=== PATIENT | female | born 1980 ===

== ENCOUNTER 2016-07-24 11:11 | Inpatient (IN) | payer OTHER ==
[2016-07-24 12:07] VITALS: BMI 28.3
--- NOTE | 2016-07-24 14:22 | HP ---
COWS - Scale Resting Pulse: 2= CO 101-120 Sweatin=Flushed/Facial Moisture Restless Observation: 3= Extraneous Movement Pupil Size: 2= Moderately Dilated Bone or Joint Aches: 2= Severe Diffuse Aches Runny Nose/ Eye Tearin= Runny Nose/Eyes GI Upset > 30mins: 3= Vomiting/Diarrhea Tremor Observation: 2= Slight Tremor Visible Yawning Observation: 2= >3x During Session Anxiety or Irritability: 2=Irritable/Anxious Goose Flesh Skin: 0=Smooth Skin COWS Score: 22 CIWA Score - CIWA Score Nausea/Vomitin Muscle Tremors: 3 Anxiety: 3 Agitation: 3 Paroxysmal Sweats: 2 Orientation: 0-Oriented Tacttile Disturbances: 2-Mild Itch/Numbness/Burn Auditory Disturbances: 2-Mild Harshness/Frighten Visual Disturbances: 2-Mild Sensitivity Headache: 2-Mild CIWA-Ar Total Score: 22 Admission ROS BHS - HPI Chief Complaint: I NEED HELP TO STOP USING HEROIN AND ALCOHOL Allergies/Adverse Reactions: Allergies Allergy/AdvReac Type Severity Reaction Status Date / Time No Known Allergies Allergy Verified 07/24/16 12:38 History of Present Illness: THIS 36 YEARS OLD FEMALE WITH HEROIN AND ALCOHOL DEPENDENCE,WITHDRAWAL SYMPTOM, LAST DETOX IN 07/03 IN [place] BIPOLAR DISORDER NICOTINE DEPENDENCE LONGEST PERIOD OF SOBRIETY HYPERTENSION Exam Limitations: No Limitations - Ebola screening Have you traveled outside of the country in the last 21 days: No Have you had contact with anyone from an Ebola affected area: No Have you been sick,other than usual withdrawal symptoms: No - Review of Systems Constitutional: Chills, Diaphoresis, Loss of Appetite, Malaise, Night Sweats, Changes in sleep, Weakness EENT: reports: Tearing, Nose Congestion Respiratory: reports: No Symptoms reported Cardiac: reports: Palpitations GI: reports: Diarrhea, Poor Appetite, Vomiting, Abdominal cramping : reports: No Symptoms Reported Musculoskeletal: reports: Back Pain, Joint Pain, Muscle Pain, Neck Pain Integumentary: reports: Dryness Neuro: reports: Headache, Tremors Endocrine: reports: No Symptoms Reported Hematology: reports: No Symptoms Reported Psychiatric: reports: Judgement Intact, Mood/Affect Appropiate, Orientated x3 ( BIPOLAR DISORDER) Patient History - Patient Medical History Hx Asthma: No Hx Chronic Obstructive Pulmonary Disease (COPD): No Hx Cancer: No Hx Cardiac Disorders: No Hx Hypertension: Yes (on meds.) Hx Hypercholesterolemia: No Hx Pacemaker: No HX Cerebrovascular Accident: No Hx Seizures: No Hx Dementia: No Hx Diabetes: No Hx Gastrointestinal Disorders: No Hx Liver Disease: No Hx Genitourinary Disorders: No Hx Sexually Transmitted Disorders: No Hx Renal Disease (ESRD): No Hx Thyroid Disease: No Hx Human Immunodeficiency Virus (HIV): No (LAST 02/01 NEGATIVE) Hx Hepatitis C: Yes Hx Depression: Yes Hx Suicide Attempt: Yes (Tried to overdose in 2013) Hx Bipolar Disorder: Yes Hx Schizophrenia: No Other Medical History: NO SUICIDAL,NO HOMICIDAL - Patient Surgical History Past Surgical History: Yes Hx Section: Yes (x2) - PPD History Previous Implant?: Yes Documented Results: Negative w/o proof Implanted On Prior R Admission?: No PPD to be Administered?: Yes - Reproductive History Patient is a Female of Child Bearing Age (11 -55 yrs old): Yes Last Menstrual Period: 07/18/16 Patient : No - Smoking Cessation Smoking history: Current every day smoker Have you smoked in the past 12 months: Yes Aproximately how many cigarettes per day: 20 Hx Chewing Tobacco Use: No Initiated information on smoking cessation: Yes 'Breaking Loose' booklet given: 07/24/16 - Substance & Tx. History Hx Alcohol Use: Yes Hx Substance Use: Yes Substance Use Type: Alcohol, Cocaine, Heroin Hx Substance Use Treatment: Yes (07/03 IN [facility] 07/03) - Substances Abused Heroin Route: Injection Frequency: Daily Amount used: 30 bags Age of first use: 16 Date of Last Use: 07/24/16 Alcohol Route: Oral Frequency: Daily Amount used: 2 pints vodka Age of first use: 10 Date of Last Use: 07/24/16 Cocaine Route: Injection Frequency: Daily Amount used: 10 bags Age of first use: 16 Date of Last Use: 07/24/16 Family Disease History - Family Disease History Family Disease History: Other: Mother (ALCOHOL) Admission Physical Exam S - Vital Signs Vital Signs: Vital Signs - 24 hr 07/24/16 12:04 Temperature 98.1 F Pulse Rate 100 H Respiratory 20 Rate Blood Pressure 132/86 - Physical General Appearance: Yes: Moderate Distress, Alcohol on Breath, Intoxicated, Tremorous, Irritable, Sweating HEENTM: Yes: Hearing grossly Normal, Normocephalic, MOUNIKA, Pharynx Normal Respiratory: Yes: Lungs Clear, Normal Breath Sounds, No Respiratory Distress Neck: Yes: Within Normal Limits Breast: Yes: Breast Exam Deferred Cardiology: Yes: Tachycardia Abdominal: Yes: Within Normal Limits, Normal Bowel Sounds, Non Tender, Soft Genitourinary: Yes: Within Normal Limits Back: Yes: Muscle Spasm Musculoskeletal: Yes: Back pain, Joint Stiffness, Muscle Pain Extremities: Yes: Within Normal Limits, Normal Range of Motion, Tremors Neurological: Yes: home care manager rn II-XII NML intact, Fully Oriented, Alert, Motor Strength 5/5 Integumentary: Yes: Dry Lymphatic: Yes: Within Normal Limits - Diagnostic (1) Opioid dependence with withdrawal Current Visit: Yes Status: Acute (2) Alcohol dependence with uncomplicated withdrawal Current Visit: Yes Status: Acute (3) Hypertension Current Visit: Yes Status: Acute (4) Bipolar disorder Current Visit: Yes Status: Acute (5) Hepatitis C Current Visit: Yes Status: Acute Cleared for Admission [facility] - Detox or Rehab [facility] Level of Care: Medically Managed Detox Regimen/Protocol: Methadone/Librium [facility] Breath Alcohol Content Breath Alcohol Content: 0 Urine Pregancy Test - Result Urine Test Results: Negative- NO Line Present Urine Drug Screen - Results Drug Screen Negative: No Urine Drug Screen Results: OBED-Cocaine, OPI-Opiates, BZO-Benzodiazepines, MTD- Methadone, TCA-Tricyclic Antidepress
[2016-07-24] MEDS ORDERED: MAGNESIUM HYDROX 2400MG/30ML ORAL SUSPENSION 30 ML CUP PO PRN (14:38)
[2016-07-24] MEDS ORDERED: LOPERAMIDE HCL 2 MG CAPSULE PO PRN (14:38)
[2016-07-24] MEDS ORDERED: chlordiazePOXIDE HCL 25 MG CAPSULE PO PRN (14:38)
[2016-07-24] MEDS ORDERED: MENTHOL/PHENOL 1 EACH UD MM PRN (14:38)
[2016-07-24] MEDS ORDERED: guaiFENesin/D-METHORPHAN HB 10 ML UNIT-DOSE CUPS PO PRN (14:38)
[2016-07-24] MEDS ORDERED: MAGNESIUM CITRATE 300 ML BOTTLE PO PRN (14:38)
[2016-07-24] MEDS ORDERED: ACETAMINOPHEN 325 MG TABLET (FP) PO PRN (14:38)
[2016-07-24] MEDS ORDERED: MAG HYDROX/AL HYDROX/SIMETH 30 ML UNIT-DOSE CUP PO PRN (14:38)
[2016-07-24] MEDS ORDERED: P-EPHED 60MG/TRIPROLIDI 2.5MG TABLET PO PRN (14:38)
[2016-07-24] MEDS ORDERED: METHADONE HCL 10 MG TABLET (FOR DETOX USE ONLY) PO ONE ×2 (15:55→23:00)
[2016-07-24] MEDS: chlordiazePOXIDE HCL 25 MG CAPSULE PO SCH ×2 (17:19→22:46)
[2016-07-24 20:06] LABS: URINE APPEARANCE CLEAR; URINE BILIRUBIN NEGATIVE (NEGATIVE); URINE BLOOD NEGATIVE (NEGATIVE); URINE COLOR YELLOW; URINE GLUCOSE (UA) NEGATIVE (NEGATIVE); URINE KETONE NEGATIVE (NEGATIVE); URINE LEUK ESTERASE NEGATIVE (NEGATIVE); URINE NITRITE NEGATIVE (NEGATIVE); URINE PROTEIN NEGATIVE (NEGATIVE); URINE UROBILINOGEN NEGATIVE E.U./dl (0.2-1.0)
[2016-07-24] MEDS: diphenhydrAMINE HCL 50 MG CAPSULE PO PRN (22:46)
[2016-07-24] MEDS: cloNIDine HCL 0.1 MG TABLET PO SCH (22:46)
[2016-07-24] MEDS: THIAMINE HCL 100 MG TABLET (FP) PO SCH (22:46)
[2016-07-25] MEDS: chlordiazePOXIDE HCL 25 MG CAPSULE PO SCH ×4 (05:42→22:42)
[2016-07-25] MEDS: IBUPROFEN 400 MG TABLET (FP) PO PRN (05:44)
[2016-07-25] MEDS: cloNIDine HCL 0.1 MG TABLET PO SCH ×3 (07:46→22:41)
[2016-07-25] MEDS ORDERED: METHADONE HCL 10 MG TABLET (FOR DETOX USE ONLY) PO SCH (10:00)
[2016-07-25 10:18] LABS: MCH 27.4 pg (25.7-33.7); MCHC 31.8 g/dl (32.0-36.0); MEAN PLT VOLUME 7.9 fl (7.5-11.1); PLATELET COUNT 457 K/MM3 (134-434); RDW 20.1 % (11.6-15.6); WHITE BLOOD COUNT 6.8 K/mm3 (4.0-10.0)
[2016-07-25 10:23] LABS: ALBUMIN 3.9 g/dl (3.4-5.0); ANION GAP 11 (8-16); CALCIUM 9.1 mg/dL (8.5-10.1); CO2 28 mmol/L (21-32); GLUCOSE,RANDOM 90 mg/dL (74-106); SGOT/AST 125 U/L (15-37); SGPT/ALT 68 U/L (12-78)
[2016-07-25 10:25] LABS: ALK PHOS 96 U/L (45-117); BILIRUBIN,TOTAL 0.2 mg/dL (0.2-1.0); TOT PROT 8.5 g/dl (6.4-8.2)
[2016-07-25] MEDS: PRENATAL VITAMINS W/ FOLIC ACID TABLET (FP) PO SCH (11:31)
[2016-07-25 13:00] LABS: HIV 1 & 2 AB NEGATIVE; HIV 1 AGp24 NEGATIVE
[2016-07-25] MEDS: CYCLOBENZAPRINE HCL 10 MG TABLET (FP) PO PRN ×2 (13:17→22:42)
[2016-07-25 14:01] LABS: SICKLE CELL SCREEN NEGATIVE (NEGATIVE)
[2016-07-25] MEDS: NICOTINE 21 MG/24 HOURS TOPICAL PATCH TD SCH (15:23)
--- NOTE | 2016-07-25 16:11 | EKG ---
Test Reason : Blood Pressure : / mmHG Vent. Rate : 071 BPM Atrial Rate : 071 BPM P-R Int : 180 ms QRS Dur : 070 ms QT Int : 392 ms P-R-T Axes : 038 019 052 degrees QTc Int : 425 ms NORMAL SINUS RHYTHM NORMAL ECG WHEN COMPARED WITH ECG OF 24-JUL-2016 15:57, NO SIGNIFICANT CHANGE WAS FOUND Confirmed by MARGAUX CASH MD ([id number]) on 07/25/2016 4:11:47 PM Referred By: Confirmed By:MARGAUX CASH MD
--- NOTE | 2016-07-25 16:16 | EKG ---
Test Reason : Blood Pressure : / mmHG Vent. Rate : 084 BPM Atrial Rate : 084 BPM P-R Int : 172 ms QRS Dur : 074 ms QT Int : 390 ms P-R-T Axes : 056 014 059 degrees QTc Int : 460 ms NORMAL SINUS RHYTHM CANNOT RULE OUT ANTERIOR INFARCT , AGE UNDETERMINED ABNORMAL ECG NO PREVIOUS ECGS AVAILABLE Confirmed by MARGAUX CASH MD ([id number]) on 07/25/2016 4:16:23 PM Referred By: Confirmed By:MARGAUX CASH MD
--- NOTE | 2016-07-25 16:23 | CONSULT ---
[facility] Psychiatric Consult - Data Date of interview: 07/25/16 Admission source: [facility] Identifying data: First admission to [facility] for this 36 y/o AA female seeking detox treatment for heroin,alcohol and cocaine dependence.Patient is single,a mother of three,homeless,unemployed and supported on food stamps. Substance Abuse History: - Smoking Cessation. Smoking history: Current every day smoker. Have you smoked in the past 12 months: Yes. Aproximately how many cigarettes per day: 20. Hx Chewing Tobacco Use: No. Initiated information on smoking cessation: Yes. 'Breaking Loose' booklet given: 07/24/16. - Substance & Tx. History. Hx Alcohol Use: Yes. Hx Substance Use: Yes. Substance Use Type : Alcohol, Cocaine, Heroin. Hx Substance Use Treatment: Yes (07/03 IN [facility] 07/03). - Substances Abused. Heroin. Route: Injection. Frequency: Daily. Amount used: 30 bags. Age of first use: 16. Date of Last Use: . Alcohol. Route: Oral. Frequency: Daily. Amount used: 2 pints vodka. Age of first use: 10. Date of Last Use: 07/24/16. Cocaine. Route: Injection. Frequency: Daily. Amount used: 10 bags. Age of first use: 16. Date of Last Use: 07/24/16. Confirmed by patient. Medical History: Hepatitis C and hypertension. Psychiatric History: Past history of psychiatric hospitalizations (only in [place]).Patient is known to the [facility] and [facility].Diagnosed with Bipolar Disorder and prescribed seroquel 300 mg/hs + zoloft 50 mg/day.Ms Machado gets her OPD care at the [facility] mental health clinic.Last took her medications two days ago (self-report).Patient denies history of suicide attempts. Physical/Sexual Abuse/Trauma History: Patient denies. Additional Comment: Urine Drug Screen Results: OBED-Cocaine, OPI-Opiates, BZO- Benzodiazepines, MTD-Methadone, TCA-Tricyclic Antidepressant.Noted. Mental Status Exam - Mental Status Exam Alert and Oriented to: Time, Place, Person Cognitive Function: Good Patient Appearance: Well Groomed Mood: Nervous, Withdrawn, Anxious, Apprehensive Affect: Mood Congruent Patient Behavior: Fatigued, Cooperative Speech Pattern: Clear Voice Loudness: Normal Thought Process: Goal Oriented Thought Disorder: Not Present Hallucinations: Denies Suicidal Ideation: Denies Insight/Judgement: Poor Sleep: Poorly, Difficulty falling asleep Appetite: Good Muscle strength/Tone: Normal Gait/Station: Normal Psychiatric Findings - Problem List (Gray 1, 2,3) (1) Alcohol dependence with uncomplicated withdrawal Current Visit: Yes Status: Acute (2) Opioid dependence with withdrawal Current Visit: Yes Status: Acute (3) Cocaine dependence Current Visit: Yes Status: Acute (4) Nicotine dependence Current Visit: Yes Status: Acute (5) Substance induced mood disorder Current Visit: Yes Status: Acute (6) Bipolar disorder Current Visit: Yes Status: Chronic Comment: History. (7) Hepatitis C Current Visit: Yes Status: Chronic (8) Hypertension Current Visit: Yes Status: Chronic (9) Insomnia Current Visit: Yes Status: Acute - Initial Treatment Plan Initial Treatment Plan: Psychoeducation.Detoxification.Medications : seroquel 200 mg po hs + zoloft 50 mg po daily.Side effects/benefits discussed with patient.She agrees with this plan of care.Observation.
--- NOTE | 2016-07-25 17:25 | PN ---
S CIWA - CIWA Score Nausea/Vomitin-Mild Nausea/No Vomiting Muscle Tremors: 4-Moderate,w/Arms Extend Anxiety: 4-Mod. Anxious/Guarded Agitation: 4-Moderately Restless Paroxysmal Sweats: 3 Orientation: 1-Uncertain about Date Tacttile Disturbances: 2-Mild Itch/Numbness/Burn Auditory Disturbances: 0-None Visual Disturbances: 0-None Headache: 2-Mild CIWA-Ar Total Score: 21 BHS COWS - Scale Resting Pulse: 0= [place] 80 or Below Sweatin= Chills/Flushing Restless Observation: 1= Difficult to Sit Still Pupil Size: 0= Normal to Room Light Bone or Joint Aches: 2= Severe Diffuse Aches Runny Nose/ Eye Tearin= Nasal Congestion GI Upset > 30mins: 0= None Tremor Observation of Outstretched Hands: 2= Slight Tremor Visible Yawning Observation: 1= 1-2x During Session Anxiety or Irritability: 2=Irritable/Anxious Goose Flesh Skin: 3=Piloerection COWS Score: 13 S Progress Note (SOAP) Subjective: Body Aches, Muscle spasms, H/A, Sweating, Interrupted sleep, Hot / Cold sensations. Objective: PT. A & O X 2 (DISORIENTED ABOUT DAY / DATE). PT. OBSERVED AMBULATING ON UNIT. 07/25/16 17:23 Vital Signs Temperature 97.2 F L 07/25/16 14:39 Pulse Rate 59 L 07/25/16 14:39 Respiratory Rate 18 07/25/16 14:39 Blood Pressure 122/69 07/25/16 14:39 O2 Sat by Pulse Oximetry (%) Laboratory Last Values WBC 6.8 K/mm3 (4.0-10.0) 07/25/16 08:00 RBC 4.18 M/mm3 (3.60-5.2) 07/25/16 08:00 Hgb 11.4 GM/dL (10.7-15.3) 07/25/16 08:00 Hct 36.0 % (32.4-45.2) 07/25/16 08:00 MCV 86.0 fl (80-96) 07/25/16 08:00 MCHC 31.8 g/dl (32.0-36.0) L 07/25/16 08:00 RDW 20.1 % (11.6-15.6) H 07/25/16 08:00 Plt Count 457 K/MM3 (134-434) H 07/25/16 08:00 MPV 7.9 fl (7.5-11.1) 07/25/16 08:00 Sickle Cell Screen Negative (NEGATIVE) 07/25/16 08:00 Sodium 138 mmol/L (136-145) 07/25/16 08:00 Potassium 4.5 mmol/L (3.5-5.1) 07/25/16 08:00 Chloride 99 mmol/L (98-107) 07/25/16 08:00 Carbon Dioxide 28 mmol/L (21-32) 07/25/16 08:00 Anion Gap 11 (8-16) 07/25/16 08:00 BUN 6 mg/dL (7-18) L 07/25/16 08:00 Creatinine 1.0 mg/dL (0.55-1.02) 07/25/16 08:00 Creat Clearance w eGFR > 60 (>60) 07/25/16 08:00 Random Glucose 90 mg/dL (74-106) 07/25/16 08:00 Calcium 9.1 mg/dL (8.5-10.1) 07/25/16 08:00 Total Bilirubin 0.2 mg/dL (0.2-1.0) 07/25/16 08:00 AST 125 U/L (15-37) H 07/25/16 08:00 ALT 68 U/L (12-78) 07/25/16 08:00 Alkaline Phosphatase 96 U/L (45-117) 07/25/16 08:00 Total Protein 8.5 g/dl (6.4-8.2) H 07/25/16 08:00 Albumin 3.9 g/dl (3.4-5.0) 07/25/16 08:00 Urine Color Yellow 07/24/16 15:31 Urine Appearance Clear 07/24/16 15:31 Urine pH 5.0 (5.0-8.0) 07/24/16 15:31 Ur Specific [place] 1.020 (1.001-1.035) 07/24/16 15:31 Urine Protein Negative (NEGATIVE) 07/24/16 15:31 Urine Glucose (UA) Negative (NEGATIVE) 07/24/16 15:31 Urine Ketones Negative (NEGATIVE) 07/24/16 15:31 Urine Blood Negative (NEGATIVE) 07/24/16 15:31 Urine Nitrite Negative (NEGATIVE) 07/24/16 15:31 Urine Bilirubin Negative (NEGATIVE) 07/24/16 15:31 Urine Urobilinogen Negative E.U./dl (0.2-1.0) 07/24/16 15:31 Ur Leukocyte Esterase Negative (NEGATIVE) 07/24/16 15:31 RPR Titer Nonreactive (NONREACTIVE) 07/25/16 08:00 HIV 1&2 Antibody Screen Negative 07/24/16 13:00 HIV P24 Antigen Negative 07/24/16 13:00 LABS NOTED. Assessment: 07/25/16 17:24 WITHDRAWAL SYMPTOMS. Plan: CONTINUE DETOX. PRN FLEXERIL FOR MUSCLE SPASMS. ADVISED PATIENT TO FOLLOW-UP WITH HEATER OPERATOR HELPER / REHAB MEDICAL PROVIDER AFTER DISCHARGE FROM DETOX FOR GENERAL MEDICAL ASSESSMENT AND FOR ABNORMAL ADMISSION LAB VALUES.
[2016-07-25] MEDS: SERTRALINE HCL 50 MG TABLET (FP) PO SCH (17:29)
[2016-07-25] MEDS: THIAMINE HCL 100 MG TABLET (FP) PO SCH (22:42)
[2016-07-25] MEDS: QUEtiapine FUMARATE 200 MG TABLET PO SCH (22:42)
[2016-07-26] MEDS: chlordiazePOXIDE HCL 25 MG CAPSULE PO SCH ×2 (05:49→10:52)
[2016-07-26] MEDS: CYCLOBENZAPRINE HCL 10 MG TABLET (FP) PO PRN ×4 (05:50→22:38)
[2016-07-26] MEDS: cloNIDine HCL 0.1 MG TABLET PO SCH ×3 (05:52→22:38)
[2016-07-26] MEDS: SERTRALINE HCL 50 MG TABLET (FP) PO SCH ×2 (10:52→10:56)
[2016-07-26] MEDS: PRENATAL VITAMINS W/ FOLIC ACID TABLET (FP) PO SCH (10:52)
[2016-07-26] MEDS: METHADONE HCL 5 MG TABLET (FOR DETOX USE ONLY) PO SCH (10:52)
[2016-07-26] MEDS: NICOTINE 21 MG/24 HOURS TOPICAL PATCH TD SCH (10:54)
--- NOTE | 2016-07-26 16:35 | PN ---
S CIWA - CIWA Score Nausea/Vomitin-Mild Nausea/No Vomiting Muscle Tremors: 4-Moderate,w/Arms Extend Anxiety: 4-Mod. Anxious/Guarded Agitation: 4-Moderately Restless Paroxysmal Sweats: No Perspiration Orientation: 0-Oriented Tacttile Disturbances: 1-Very Mild Itch/Numbness Auditory Disturbances: 0-None Visual Disturbances: 0-None Headache: 2-Mild CIWA-Ar Total Score: 16 BHS COWS - Scale Resting Pulse: 0= [place] 80 or Below Sweatin= Chills/Flushing Restless Observation: 3= Extraneous Movement Pupil Size: 0= Normal to Room Light Bone or Joint Aches: 2= Severe Diffuse Aches Runny Nose/ Eye Tearin= Runny Nose/Eyes GI Upset > 30mins: 1= Stomach Cramp Tremor Observation of Outstretched Hands: 2= Slight Tremor Visible Yawning Observation: 1= 1-2x During Session Anxiety or Irritability: 2=Irritable/Anxious Goose Flesh Skin: 0=Smooth Skin COWS Score: 14 S Progress Note (SOAP) Subjective: Tremor, nausea, sweating, interrupted sleep, anxious Objective: 07/26/16 16:34 Last Vital Signs Temp Pulse Resp BP Pulse Ox 97.9 F 70 16 118/79 07/26/16 14:24 07/26/16 14:24 07/26/16 14:24 07/26/16 14:24 Laboratory Tests 07/24/16 07/24/16 07/25/16 13:00 15:31 08:00 WBC 6.8 RBC 4.18 Hgb 11.4 Hct 36.0 MCV 86.0 MCHC 31.8 L RDW 20.1 H Plt Count 457 H MPV 7.9 Sickle Cell Screen Negative Sodium Potassium Chloride Carbon Dioxide Anion Gap BUN Creatinine Creat Clearance w eGFR Random Glucose Calcium Total Bilirubin AST ALT Alkaline Phosphatase Total Protein Albumin Urine Color Yellow Urine Appearance Clear Urine pH 5.0 Ur Specific [place] 1.020 Urine Protein Negative Urine Glucose (UA) Negative Urine Ketones Negative Urine Blood Negative Urine Nitrite Negative Urine Bilirubin Negative Urine Urobilinogen Negative Ur Leukocyte Esterase Negative RPR Titer HIV 1&2 Antibody Screen Negative HIV P24 Antigen Negative 07/25/16 07/25/16 08:00 08:00 WBC RBC Hgb Hct MCV MCHC RDW Plt Count MPV Sickle Cell Screen Sodium 138 Potassium 4.5 Chloride 99 Carbon Dioxide 28 Anion Gap 11 BUN 6 L Creatinine 1.0 Creat Clearance w eGFR > 60 Random Glucose 90 Calcium 9.1 Total Bilirubin 0.2 AST 125 H ALT 68 Alkaline Phosphatase 96 Total Protein 8.5 H Albumin 3.9 Urine Color Urine Appearance Urine pH Ur Specific [place] Urine Protein Urine Glucose (UA) Urine Ketones Urine Blood Urine Nitrite Urine Bilirubin Urine Urobilinogen Ur Leukocyte Esterase RPR Titer Nonreactive HIV 1&2 Antibody Screen HIV P24 Antigen Labs noted Assessment: 07/26/16 16:35 Withdrawal symptoms Plan: Continue detox
[2016-07-26] MEDS: IBUPROFEN 400 MG TABLET (FP) PO PRN ×2 (17:02→22:39)
[2016-07-26] MEDS: chlordiazePOXIDE 5 MG CAPSULE PO SCH ×2 (17:22→22:38)
[2016-07-26] MEDS: THIAMINE HCL 100 MG TABLET (FP) PO SCH (22:38)
[2016-07-26] MEDS: QUEtiapine FUMARATE 200 MG TABLET PO SCH (22:39)
[2016-07-27] MEDS: chlordiazePOXIDE 5 MG CAPSULE PO SCH ×2 (05:37→11:01)
[2016-07-27] MEDS: cloNIDine HCL 0.1 MG TABLET PO SCH ×3 (05:37→22:38)
[2016-07-27] MEDS: CYCLOBENZAPRINE HCL 10 MG TABLET (FP) PO PRN ×2 (05:39→22:38)
[2016-07-27] MEDS: SERTRALINE HCL 50 MG TABLET (FP) PO SCH ×2 (11:01→11:03)
[2016-07-27] MEDS: METHADONE HCL 5 MG TABLET (FOR DETOX USE ONLY) PO SCH (11:01)
[2016-07-27] MEDS: PRENATAL VITAMINS W/ FOLIC ACID TABLET (FP) PO SCH (11:01)
[2016-07-27] MEDS: NICOTINE 21 MG/24 HOURS TOPICAL PATCH TD SCH (11:04)
--- NOTE | 2016-07-27 12:24 | PN ---
BHS Progress Note (SOAP) Subjective: interrupted sleep, sweats, shakes,lbp, constipation Objective: 07/27/16 12:21 Vital Signs Temperature 97.3 F L 07/27/16 09:56 Pulse Rate 78 07/27/16 09:56 Respiratory Rate 16 07/27/16 09:56 Blood Pressure 107/52 07/27/16 09:56 O2 Sat by Pulse Oximetry (%) Laboratory Tests 07/24/16 07/24/16 07/25/16 13:00 15:31 08:00 WBC 6.8 RBC 4.18 Hgb 11.4 Hct 36.0 MCV 86.0 MCHC 31.8 L RDW 20.1 H Plt Count 457 H MPV 7.9 Sickle Cell Screen Negative Sodium Potassium Chloride Carbon Dioxide Anion Gap BUN Creatinine Creat Clearance w eGFR Random Glucose Calcium Total Bilirubin AST ALT Alkaline Phosphatase Total Protein Albumin Urine Color Yellow Urine Appearance Clear Urine pH 5.0 Ur Specific [place] 1.020 Urine Protein Negative Urine Glucose (UA) Negative Urine Ketones Negative Urine Blood Negative Urine Nitrite Negative Urine Bilirubin Negative Urine Urobilinogen Negative Ur Leukocyte Esterase Negative RPR Titer HIV 1&2 Antibody Screen Negative HIV P24 Antigen Negative 07/25/16 07/25/16 08:00 08:00 WBC RBC Hgb Hct MCV MCHC RDW Plt Count MPV Sickle Cell Screen Sodium 138 Potassium 4.5 Chloride 99 Carbon Dioxide 28 Anion Gap 11 BUN 6 L Creatinine 1.0 Creat Clearance w eGFR > 60 Random Glucose 90 Calcium 9.1 Total Bilirubin 0.2 AST 125 H ALT 68 Alkaline Phosphatase 96 Total Protein 8.5 H Albumin 3.9 Urine Color Urine Appearance Urine pH Ur Specific [place] Urine Protein Urine Glucose (UA) Urine Ketones Urine Blood Urine Nitrite Urine Bilirubin Urine Urobilinogen Ur Leukocyte Esterase RPR Titer Nonreactive HIV 1&2 Antibody Screen HIV P24 Antigen pt aox3 in nad ambulating Assessment: 07/27/16 12:23 withdrawal sx's lbp Plan: cont. detox increase fluids
[2016-07-27] MEDS ORDERED: LIDOCAINE 5% TOPICAL PATCH TP ONE (14:00)
[2016-07-27] MEDS: chlordiazePOXIDE HCL 10 MG CAPSULE PO SCH ×2 (17:21→22:38)
[2016-07-27] MEDS: IBUPROFEN 400 MG TABLET (FP) PO PRN (18:58)
[2016-07-27] MEDS: QUEtiapine FUMARATE 200 MG TABLET PO SCH (22:39)
[2016-07-27] MEDS: THIAMINE HCL 100 MG TABLET (FP) PO SCH (22:39)
[2016-07-27] MEDS: diphenhydrAMINE HCL 50 MG CAPSULE PO PRN (22:39)
[2016-07-28] MEDS: chlordiazePOXIDE HCL 10 MG CAPSULE PO SCH ×2 (06:38→11:00)
[2016-07-28] MEDS: cloNIDine HCL 0.1 MG TABLET PO SCH ×3 (07:00→22:28)
[2016-07-28] MEDS ORDERED: METHADONE HCL 10 MG TABLET (FOR DETOX USE ONLY) PO SCH (10:00)
[2016-07-28] MEDS: PRENATAL VITAMINS W/ FOLIC ACID TABLET (FP) PO SCH (10:59)
[2016-07-28] MEDS: NICOTINE 21 MG/24 HOURS TOPICAL PATCH TD SCH (11:00)
[2016-07-28] MEDS: SERTRALINE HCL 50 MG TABLET (FP) PO SCH (11:00)
[2016-07-28] MEDS: LIDOCAINE 5% TOPICAL PATCH TP SCH (11:01)
--- NOTE | 2016-07-28 11:08 | PN ---
BHS Progress Note (SOAP) Subjective: interrupted sleep, sweats , lbp Objective: 07/28/16 11:07 Vital Signs Temperature 96.1 F L 07/28/16 10:05 Pulse Rate 126 H 07/28/16 10:05 Respiratory Rate 20 07/28/16 10:05 Blood Pressure 114/72 07/28/16 10:05 O2 Sat by Pulse Oximetry (%) Laboratory Tests 07/24/16 07/24/16 07/25/16 13:00 15:31 08:00 WBC 6.8 RBC 4.18 Hgb 11.4 Hct 36.0 MCV 86.0 MCHC 31.8 L RDW 20.1 H Plt Count 457 H MPV 7.9 Sickle Cell Screen Negative Sodium Potassium Chloride Carbon Dioxide Anion Gap BUN Creatinine Creat Clearance w eGFR Random Glucose Calcium Total Bilirubin AST ALT Alkaline Phosphatase Total Protein Albumin Urine Color Yellow Urine Appearance Clear Urine pH 5.0 Ur Specific [place] 1.020 Urine Protein Negative Urine Glucose (UA) Negative Urine Ketones Negative Urine Blood Negative Urine Nitrite Negative Urine Bilirubin Negative Urine Urobilinogen Negative Ur Leukocyte Esterase Negative RPR Titer HIV 1&2 Antibody Screen Negative HIV P24 Antigen Negative 07/25/16 07/25/16 08:00 08:00 WBC RBC Hgb Hct MCV MCHC RDW Plt Count MPV Sickle Cell Screen Sodium 138 Potassium 4.5 Chloride 99 Carbon Dioxide 28 Anion Gap 11 BUN 6 L Creatinine 1.0 Creat Clearance w eGFR > 60 Random Glucose 90 Calcium 9.1 Total Bilirubin 0.2 AST 125 H ALT 68 Alkaline Phosphatase 96 Total Protein 8.5 H Albumin 3.9 Urine Color Urine Appearance Urine pH Ur Specific [place] Urine Protein Urine Glucose (UA) Urine Ketones Urine Blood Urine Nitrite Urine Bilirubin Urine Urobilinogen Ur Leukocyte Esterase RPR Titer Nonreactive HIV 1&2 Antibody Screen HIV P24 Antigen pt aox3 in nad sitting up in bed Assessment: 07/28/16 11:08 withdrawal sx's lbp 07/28/16 11:09 Plan: contr detox cont present meds incrwease fluids d/c samuel
--- NOTE | 2016-07-28 17:31 | PN ---
Psychiatric Progress Note Vital Signs: Vital Signs Period Temp Pulse Resp BP Sys/Hernandez Pulse Ox Last 24 Hr 96.1 F-98.1 F 68-126 18-20 103-129/60-79 Date of Session: 07/28/16 Chief Complaint:: " I think that some people do not like me here." HPI: Day 5 of hospitalization for detox treatment for alcohol,cocaine and heroin dependence.Patient is reported by the nursing staff to be hearing " voices." ROS: Unremarkable. Current Medications: Active Medications Generic Name Dose Route Start Last Admin Trade Name Freq PRN Reason Stop Dose Admin Acetaminophen 650 mg 07/24/16 14:38 Tylenol - PO Q4H PRN FEVER OR PAIN Al Hydroxide/Mg Hydroxide 30 ml 07/24/16 14:38 Mylanta Oral Suspension - PO Q6H PRN DYSPEPSIA Clonidine 0.1 mg 07/24/16 22:00 07/28/16 14:09 Catapres - PO Not Given TID JOAQUIN Cyclobenzaprine HCl 10 mg 07/25/16 08:24 07/27/16 22:38 Flexeril - PO 10 mg TID PRN Administration MUSCLE SPASMS Diphenhydramine HCl 50 mg 07/24/16 14:38 07/27/16 22:39 Benadryl - PO 50 mg HSMR1 PRN Administration INSOMNIA Eucalyptus/Menthol/Phenol/Sorbitol 1 each 07/24/16 14:38 Cepastat Lozenge - MM Q4H PRN SORE THROAT Guaifenesin 10 ml 07/24/16 14:38 Robitussin Dm - PO Q6H PRN COUGH Ibuprofen 400 mg 07/24/16 14:38 07/27/16 18:58 Motrin - PO 400 mg Q6H PRN Administration SEVERE PAIN Lidocaine 1 patch 07/28/16 10:00 07/28/16 11:01 Lidoderm Patch - TP 1 patch DAILY JOAQUIN Administration Loperamide HCl 4 mg 07/24/16 14:38 Imodium - PO Q6H PRN DIARRHEA Magnesium Citrate 300 ml 07/24/16 14:38 Citroma - PO Q48H PRN CONSTIPATION Magnesium Hydroxide 30 ml 07/24/16 14:38 Milk Of Magnesia - PO DAILY PRN CONSTIPATION Methadone HCl 5 mg 07/29/16 06:00 Dolophine - PO 07/29/16 06:01 DAILY@0600 JOAQUIN Nicotine 21 mg 07/25/16 13:30 07/28/16 11:00 Nicoderm Patch - TD 21 mg DAILY JOAQUIN Administration Multivit/Folic Acid/Iron 1 tab 07/25/16 10:00 07/28/16 10:59 Vitamins (Sjr) - PO 1 tab DAILY JOAQUIN Administration Pseudoephedrine/Triprolidine 1 combo 07/24/16 14:38 Actifed - PO TID PRN NASAL CONGESTION Quetiapine Fumarate 200 mg 07/25/16 22:00 07/27/16 22:39 Seroquel - PO 200 mg HS JOAQUIN Administration Sertraline HCl 50 mg 07/25/16 16:45 07/28/16 11:00 Zoloft - PO 50 mg DAILY JOAQUIN Administration Thiamine HCl 100 mg 07/24/16 22:00 07/27/16 22:39 Vitamin B1 - PO 100 mg HS JOAQUIN Administration Medication(s) Change(s): Continue seroquel 200 mg po hs. Current Side Effect: No Lab tests ordered: No Lab tests reviewed: Yes Provider note:: Progress notes reviewed.Patient re-evaluated at nurse's request.She appears sedated and she indicates that librium makes her feel " drowsy and sleepy." Patient vehemently denies hearing voices.Ms Machado is visible on the unit.Ambulates slowly.She is somewhat slurred and drifts in the conversation.Definitely sedated.Needs observation and adjustment of the librium coverage. Total face to face time:: 35 Mental Status Exam - Mental Status Exam Alert and Oriented to: Time, Place, Person Cognitive Function: Grossly Intact Patient Appearance: Well Groomed Mood: Withdrawn Affect: Blunted Patient Behavior: Sedated, Fatigued Speech Pattern: Delayed, Slurred Voice Loudness: Moderately Soft/Quiet Thought Process: Disorganized (moderately) Thought Disorder: Bizarre Hallucinations: Denies Suicidal Ideation: Denies Homicidal Ideation: Denies Insight/Judgement: Poor Sleep: Fair Appetite: Good Muscle strength/Tone: Normal Gait/Station: Normal Psychiatric Treatment Plan - Problem List (1) Alcohol dependence with uncomplicated withdrawal Current Visit: Yes (2) Opioid dependence with withdrawal Current Visit: Yes (3) Cocaine dependence Current Visit: Yes (4) Nicotine dependence Current Visit: Yes (5) Substance induced mood disorder Current Visit: Yes (6) Bipolar disorder Current Visit: Yes Comment: History. (7) Hepatitis C Current Visit: Yes (8) Hypertension Current Visit: Yes (9) Insomnia Current Visit: Yes
[2016-07-28] MEDS: QUEtiapine FUMARATE 200 MG TABLET PO SCH (22:28)
[2016-07-28] MEDS: CYCLOBENZAPRINE HCL 10 MG TABLET (FP) PO PRN (22:28)
[2016-07-28] MEDS: THIAMINE HCL 100 MG TABLET (FP) PO SCH (22:28)
[2016-07-29] MEDS ORDERED: METHADONE HCL 5 MG TABLET (FOR DETOX USE ONLY) PO SCH (06:00)
[2016-07-29] MEDS: cloNIDine HCL 0.1 MG TABLET PO SCH (06:10)
[2016-07-29 06:46] VITALS: BP 105/63
--- NOTE | 2016-07-29 09:05 | DS ---
[facility] Detox Discharge Summary Admission Date: 07/24/16 Discharge Date: 07/29/16 - History Present History: Alcohol Dependence, Cocaine Dependence - Physical Exam Results Vital Signs: Vital Signs Temperature 97.3 F L 07/29/16 06:45 Pulse Rate 63 07/29/16 06:45 Respiratory Rate 16 07/29/16 06:45 Blood Pressure 105/63 07/29/16 06:45 O2 Sat by Pulse Oximetry (%) - Treatment Hospital Course: Detox Protocol Followed, Detoxed Safely, Responded well, Discharged Condition Good - Medication Discharge Medications: Ambulatory Orders Clonidine HCl [Catapres -] 0.1 mg PO TID 07/24/16 Quetiapine Fumarate [Seroquel -] 300 mg PO HS 07/24/16 Sertraline HCl [Zoloft -] 50 mg PO DAILY 07/24/16 Quetiapine Fumarate [Seroquel -] 200 mg PO HS #30 tab 07/25/16 Sertraline HCl [Zoloft -] 50 mg PO DAILY #30 tablet 07/25/16 - Diagnosis (1) Alcohol dependence with uncomplicated withdrawal Current Visit: Yes Status: Chronic (2) Cocaine dependence Current Visit: Yes Status: Chronic (3) Insomnia Current Visit: Yes Status: Chronic Qualifiers: Insomnia type: unspecified Qualified Code(s): G47.00 - Insomnia, unspecified (4) Nicotine dependence Current Visit: Yes Status: Chronic Qualifiers: Nicotine product type: cigarettes Substance use status: uncomplicated Qualified Code(s): F17.210 - Nicotine dependence, cigarettes, uncomplicated (5) Opioid dependence with withdrawal Current Visit: Yes Status: Chronic (6) Bipolar disorder Current Visit: Yes Status: Chronic Qualifiers: Current episode severity: unspecified (7) Hepatitis C Current Visit: Yes Status: Chronic Qualifiers: Hepatic coma status: without hepatic coma (8) Hypertension Current Visit: Yes Status: Chronic - AMA Did Patient Leave Against Medical Advice: No
[2016-07-29] MEDS: LIDOCAINE 5% TOPICAL PATCH TP SCH (09:49)
[2016-07-29] MEDS: PRENATAL VITAMINS W/ FOLIC ACID TABLET (FP) PO SCH (09:49)
[2016-07-29] MEDS: NICOTINE 21 MG/24 HOURS TOPICAL PATCH TD SCH (09:49)
[2016-07-29] MEDS: SERTRALINE HCL 50 MG TABLET (FP) PO SCH (09:49)
[2016-07-29 11:05] VITALS: PULSE 75; TEMP 96.5
== END 2016-07-29 10:56 | disposition home or self-care (01) | DRG 773 ==
LOC: YASAS 11:11 → Y6N 14:54
PROVIDERS: ADMIT Internal Medicine; ATTEND Internal Medicine
PROC: HZ2ZZZZ Detoxification Services for Substance Abuse Treatment (ICD-10-PCS; principal; 2016-07-29)
DX: F11.23 Opioid dependence with withdrawal (principal); F10.230 Alcohol dependence with withdrawal, uncomplicated; F14.20 Cocaine dependence, uncomplicated; F17.210 Nicotine dependence, cigarettes, uncomplicated; F19.24 Other psychoactive substance dependence with psychoactive substance-induced mood disorder; F31.9 Bipolar disorder, unspecified; G47.00 Insomnia, unspecified; B18.2 Chronic viral hepatitis C; I10 Essential (primary) hypertension; Z59.0 Homelessness
CPT/HCPCS: 36415; 80053; 81003; 85027; 85660; 86593; 87389; 93005; 93010

== ENCOUNTER 2016-07-29 10:00 | Inpatient (IN) | payer OTHER ==
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
[2016-07-29] MEDS ORDERED: guaiFENesin/D-METHORPHAN HB 10 ML UNIT-DOSE CUPS PO PRN (14:23)
[2016-07-29] MEDS ORDERED: LOPERAMIDE HCL 2 MG CAPSULE PO PRN (14:23)
[2016-07-29] MEDS ORDERED: P-EPHED 60MG/TRIPROLIDI 2.5MG TABLET PO PRN (14:23)
[2016-07-29] MEDS ORDERED: MAG HYDROX/AL HYDROX/SIMETH 30 ML UNIT-DOSE CUP PO PRN (14:23)
[2016-07-29] MEDS ORDERED: MAGNESIUM CITRATE 300 ML BOTTLE PO PRN (14:23)
[2016-07-29] MEDS ORDERED: ACETAMINOPHEN 325 MG TABLET (FP) PO PRN (14:23)
[2016-07-29] MEDS ORDERED: MENTHOL/PHENOL 1 EACH UD MM PRN (14:23)
[2016-07-29] MEDS ORDERED: CYCLOBENZAPRINE HCL 10 MG TABLET (FP) PO PRN (14:30)
--- NOTE | 2016-07-29 14:31 | HP ---
[facility] Rehab Assess/Revision - Admission History Admitted to Rehab from: [facility] [place] Date of Admission to Rehab: 07/29/16 - Vital signs Vital Signs: Vital Signs Period Temp Pulse Resp BP Sys/Hernandez Pulse Ox Last 24 Hr 98.0 F 75 18 99/64 - Findings Detox History & Physical reviewed: Yes Concur with findings: Yes
[2016-07-29] MEDS: IBUPROFEN 400 MG TABLET (FP) PO PRN (17:51)
[2016-07-29] MEDS: THIAMINE HCL 100 MG TABLET (FP) PO SCH (21:49)
[2016-07-29] MEDS: cloNIDine HCL 0.1 MG TABLET PO SCH (21:49)
[2016-07-29] MEDS: QUEtiapine FUMARATE 300 MG TABLET PO SCH (21:49)
[2016-07-29] MEDS ORDERED: QUEtiapine FUMARATE 200 MG TABLET PO SCH (22:00)
[2016-07-29] MEDS: diphenhydrAMINE HCL 50 MG CAPSULE PO PRN (23:08)
[2016-07-30] MEDS ORDERED: SERTRALINE HCL 50 MG TABLET (FP) PO SCH (10:00)
[2016-07-30] MEDS ORDERED: NICOTINE 14 MG/24 HOURS TOPICAL PATCH TD SCH (10:00)
[2016-07-30] MEDS: SERTRALINE HCL 50 MG TABLET (FP) PO SCH (10:02)
[2016-07-30] MEDS: NICOTINE 21 MG/24 HOURS TOPICAL PATCH TD SCH (10:02)
[2016-07-30] MEDS: cloNIDine HCL 0.1 MG TABLET PO SCH ×2 (10:03→21:04)
[2016-07-30] MEDS: PRENATAL VITAMINS W/ FOLIC ACID TABLET (FP) PO SCH (10:03)
--- NOTE | 2016-07-30 11:46 | PN ---
Psychiatric Progress Note Vital Signs: Vital Signs Period Temp Pulse Resp BP Sys/Hernandez Pulse Ox Last 24 Hr 97.3 F 90-93 18-18 109-117/70-73 Date of Session: 07/30/16 Chief Complaint:: "am depressed" HPI: Patient is addressing alcohol, cocaine, opioid, nicotine dependence comorbid Bipolar I disorder. ROS: Significant for HTN, Hep C and S/P x2 Current Medications: Active Medications Generic Name Dose Route Start Last Admin Trade Name Freq PRN Reason Stop Dose Admin Acetaminophen 650 mg 07/29/16 14:23 Tylenol - PO Q4H PRN FEVER OR PAIN Al Hydroxide/Mg Hydroxide 30 ml 07/29/16 14:23 Mylanta Oral Suspension - PO Q6H PRN DYSPEPSIA Bupropion HCl 100 mg 07/31/16 10:00 Wellbutrin - PO DAILY JOAQUIN Clonidine 0.1 mg 07/29/16 22:00 07/30/16 10:03 Catapres - PO 0.1 mg BID JOAQUIN Administration Cyclobenzaprine HCl 10 mg 07/29/16 14:30 07/29/16 17:51 Flexeril - PO 10 mg TID PRN Administration MUSCLE SPASMS Diphenhydramine HCl 50 mg 07/29/16 14:23 07/29/16 23:08 Benadryl - PO 50 mg HSMR1 PRN Administration FOR ITCHING Eucalyptus/Menthol/Phenol/Sorbitol 1 each 07/29/16 14:23 Cepastat Lozenge - MM Q4H PRN SORE THROAT Guaifenesin 10 ml 07/29/16 14:23 Robitussin Dm - PO Q6H PRN COUGH Hydroxyzine Pamoate 50 mg 07/30/16 11:42 Vistaril - PO Q4H PRN ANXIETY Ibuprofen 400 mg 07/29/16 14:23 07/29/16 17:51 Motrin - PO 400 mg Q6H PRN Administration PAIN Loperamide HCl 4 mg 07/29/16 14:23 Imodium - PO Q6H PRN DIARRHEA Magnesium Citrate 300 ml 07/29/16 14:23 Citroma - PO 07/31/16 14:24 Q48H PRN CONSTIPATION Magnesium Hydroxide 30 ml 07/29/16 14:23 Milk Of Magnesia - PO DAILY PRN CONSTIPATION Nicotine 21 mg 07/30/16 10:00 04/13/17 10:02 Nicoderm Patch - TD 21 mg DAILY JOAQUIN Administration Nicotine Polacrilex 2 mg 07/29/16 14:23 Nicorette Gum - BUC Q2H PRN NICOTINE REPLACEMENT RX Multivit/Folic Acid/Iron 1 tab 07/30/16 10:00 07/30/16 10:03 Vitamins (Sjr) - PO 1 tab DAILY JOAQUIN Administration Pseudoephedrine/Triprolidine 1 combo 07/29/16 14:23 Actifed - PO TID PRN NASAL CONGESTION Quetiapine Fumarate 300 mg 07/29/16 22:00 07/29/16 21:49 Seroquel - PO 300 mg HS JOAQUIN Administration Sertraline HCl 100 mg 07/30/16 10:00 07/30/16 10:02 Zoloft - PO 100 mg DAILY JOAQUIN Administration Thiamine HCl 100 mg 07/29/16 22:00 07/29/16 21:49 Vitamin B1 - PO 100 mg HS JOAQUIN Administration Medication(s) Change(s): add Wellbutrin 100 mg po daily, add Vistaril 50 mg po q 4h prn. Current Side Effect: No Lab tests ordered: No Lab tests reviewed: Yes Provider note:: Reviewed the chart, met with the patient, who is c/o depressed mood, anxiety, having crying spells, low energy level, reviewed her current medications , side-effects and benefits each of medications discussed, psychoeducation and supportive therapy provided, recommended Wellbutrin 100 mg po am and Vistaril 50 mg po 4 hrs, continue to monitor progress. Total face to face time:: 30 Mental Status Exam - Mental Status Exam Alert and Oriented to: Time, Place, Person Cognitive Function: Good Patient Appearance: Well Groomed Mood: Depressed, Sad, Anxious Affect: Appropriate, Mood Congruent Patient Behavior: Appropriate, Cooperative Speech Pattern: Clear, Appropriate Voice Loudness: Normal Thought Process: Intact, Goal Oriented Thought Disorder: Not Present Hallucinations: Denies Suicidal Ideation: Denies Homicidal Ideation: Denies Insight/Judgement: Fair Sleep: Fair Appetite: Fair Muscle strength/Tone: Normal Gait/Station: Normal Psychiatric Treatment Plan - Problem List (1) Alcohol dependence with uncomplicated withdrawal Current Visit: No (2) Bipolar disorder Current Visit: No Qualifiers: Current episode severity: unspecified Comment: History. (3) Cocaine dependence Current Visit: No (4) Nicotine dependence Current Visit: No Qualifiers: Nicotine product type: cigarettes Substance use status: uncomplicated Qualified Code(s): F17.210 - Nicotine dependence, cigarettes, uncomplicated
[2016-07-30] MEDS: hydrOXYzine PAMOATE 50 MG CAPSULE (FP) PO PRN (12:46)
[2016-07-30] MEDS: LIDOCAINE 5% TOPICAL PATCH TP SCH (14:48)
[2016-07-30] MEDS: QUEtiapine FUMARATE 300 MG TABLET PO SCH (21:04)
[2016-07-30] MEDS: THIAMINE HCL 100 MG TABLET (FP) PO SCH (21:04)
[2016-07-30] MEDS: diphenhydrAMINE HCL 50 MG CAPSULE PO PRN (21:05)
[2016-07-31] MEDS: IBUPROFEN 400 MG TABLET (FP) PO PRN (06:34)
[2016-07-31] MEDS: hydrOXYzine PAMOATE 50 MG CAPSULE (FP) PO PRN ×3 (06:34→21:11)
[2016-07-31] MEDS: LIDOCAINE 5% TOPICAL PATCH TP SCH (09:53)
[2016-07-31] MEDS: NICOTINE 21 MG/24 HOURS TOPICAL PATCH TD SCH (09:53)
[2016-07-31] MEDS: cloNIDine HCL 0.1 MG TABLET PO SCH ×2 (09:54→21:10)
[2016-07-31] MEDS: buPROPion HCL 100 MG TABLET PO SCH (09:54)
[2016-07-31] MEDS: SERTRALINE HCL 50 MG TABLET (FP) PO SCH (09:55)
[2016-07-31] MEDS: PRENATAL VITAMINS W/ FOLIC ACID TABLET (FP) PO SCH (09:55)
[2016-07-31] MEDS: MAGNESIUM HYDROX 2400MG/30ML ORAL SUSPENSION 30 ML CUP PO PRN (15:39)
[2016-07-31] MEDS ORDERED: TUBERCULIN PPD 5 TU/0.1ML VIAL ID ONE (15:48)
[2016-07-31] MEDS: THIAMINE HCL 100 MG TABLET (FP) PO SCH (21:10)
[2016-07-31] MEDS: QUEtiapine FUMARATE 300 MG TABLET PO SCH (21:10)
[2016-08-01] MEDS: hydrOXYzine PAMOATE 50 MG CAPSULE (FP) PO PRN ×3 (06:52→21:10)
[2016-08-01] MEDS: buPROPion HCL 100 MG TABLET PO SCH (09:53)
[2016-08-01] MEDS: PRENATAL VITAMINS W/ FOLIC ACID TABLET (FP) PO SCH (09:53)
[2016-08-01] MEDS: LIDOCAINE 5% TOPICAL PATCH TP SCH (09:56)
[2016-08-01] MEDS: cloNIDine HCL 0.1 MG TABLET PO SCH ×2 (09:56→21:09)
[2016-08-01] MEDS: NICOTINE 21 MG/24 HOURS TOPICAL PATCH TD SCH (09:56)
[2016-08-01] MEDS: SERTRALINE HCL 50 MG TABLET (FP) PO SCH (09:57)
[2016-08-01] MEDS: NICOTINE POLACRILEX 2 MG GUM BUC PRN (12:43)
[2016-08-01] MEDS: QUEtiapine FUMARATE 300 MG TABLET PO SCH (21:09)
[2016-08-01] MEDS: THIAMINE HCL 100 MG TABLET (FP) PO SCH (21:09)
[2016-08-01] MEDS ORDERED: PT OWN MED DRAWER 7, Y5N ONE (22:44)
[2016-08-02] MEDS: hydrOXYzine PAMOATE 50 MG CAPSULE (FP) PO PRN ×3 (08:25→21:10)
[2016-08-02] MEDS: buPROPion HCL 100 MG TABLET PO SCH (10:03)
[2016-08-02] MEDS: PRENATAL VITAMINS W/ FOLIC ACID TABLET (FP) PO SCH (10:03)
[2016-08-02] MEDS: SERTRALINE HCL 50 MG TABLET (FP) PO SCH (10:03)
[2016-08-02] MEDS: NICOTINE 21 MG/24 HOURS TOPICAL PATCH TD SCH (10:04)
[2016-08-02] MEDS: LIDOCAINE 5% TOPICAL PATCH TP SCH (10:05)
[2016-08-02] MEDS: cloNIDine HCL 0.1 MG TABLET PO SCH ×2 (10:05→21:09)
[2016-08-02] MEDS ORDERED: PT OWN MED DRAWER 7, Y5N ONE (12:06)
[2016-08-02] MEDS: NICOTINE POLACRILEX 2 MG GUM BUC PRN (17:58)
[2016-08-02] MEDS: THIAMINE HCL 100 MG TABLET (FP) PO SCH (21:09)
[2016-08-02] MEDS: QUEtiapine FUMARATE 300 MG TABLET PO SCH (21:09)
[2016-08-03] MEDS: hydrOXYzine PAMOATE 50 MG CAPSULE (FP) PO PRN ×2 (07:43→14:35)
[2016-08-03] MEDS: PRENATAL VITAMINS W/ FOLIC ACID TABLET (FP) PO SCH (10:07)
[2016-08-03] MEDS: SERTRALINE HCL 50 MG TABLET (FP) PO SCH (10:07)
[2016-08-03] MEDS: cloNIDine HCL 0.1 MG TABLET PO SCH ×2 (10:07→21:11)
[2016-08-03] MEDS: buPROPion HCL 100 MG TABLET PO SCH (10:07)
[2016-08-03] MEDS: NICOTINE 21 MG/24 HOURS TOPICAL PATCH TD SCH (10:08)
[2016-08-03] MEDS: LIDOCAINE 5% TOPICAL PATCH TP SCH (10:09)
[2016-08-03] MEDS: MAGNESIUM HYDROX 2400MG/30ML ORAL SUSPENSION 30 ML CUP PO PRN (11:42)
[2016-08-03] MEDS ORDERED: PT OWN MED DRAWER 7, Y5N ONE (15:55)
[2016-08-03] MEDS ORDERED: CITRIC ACID/SODIUM CITRATE 30 ML UNIT-DOSE CUP PO ONE (18:38)
[2016-08-03] MEDS ORDERED: MAGNESIUM CITRATE 300 ML BOTTLE PO ONE (20:32)
[2016-08-03] MEDS: THIAMINE HCL 100 MG TABLET (FP) PO SCH (21:11)
[2016-08-03] MEDS: QUEtiapine FUMARATE 300 MG TABLET PO SCH (21:11)
[2016-08-04 06:49] VITALS: TEMP 97.8
[2016-08-04] MEDS: hydrOXYzine PAMOATE 50 MG CAPSULE (FP) PO PRN (06:57)
[2016-08-04] MEDS: LIDOCAINE 5% TOPICAL PATCH TP SCH (09:44)
[2016-08-04] MEDS: NICOTINE 21 MG/24 HOURS TOPICAL PATCH TD SCH (09:44)
[2016-08-04] MEDS: cloNIDine HCL 0.1 MG TABLET PO SCH (09:45)
[2016-08-04] MEDS: buPROPion HCL 100 MG TABLET PO SCH (09:45)
[2016-08-04] MEDS: SERTRALINE HCL 50 MG TABLET (FP) PO SCH (09:45)
[2016-08-04] MEDS: PRENATAL VITAMINS W/ FOLIC ACID TABLET (FP) PO SCH (09:45)
[2016-08-04 10:01] VITALS: BP 110/73; PULSE 73
--- NOTE | 2016-08-04 12:56 | PN ---
[facility] Progress Note Note: Patient decided to sign out today.She did not meet her treatment goals .Patient will continue to address her issues on outpatient basis.See staff notes for details.
== END 2016-08-04 12:30 | disposition left against medical advice (07) | DRG 770 ==
LOC: YASAS 10:00 → Y3E 10:01
PROVIDERS: ADMIT Psychiatry & Neurology Psychiatry; ATTEND Psychiatry & Neurology Psychiatry
PROC: HZ42ZZZ Group Counseling for Substance Abuse Treatment, Cognitive-Behavioral (ICD-10-PCS; principal; 2016-07-29)
DX: F11.20 Opioid dependence, uncomplicated (principal); F10.20 Alcohol dependence, uncomplicated; F14.20 Cocaine dependence, uncomplicated; F17.210 Nicotine dependence, cigarettes, uncomplicated; F31.89 Other bipolar disorder; I10 Essential (primary) hypertension; B18.2 Chronic viral hepatitis C; Z59.0 Homelessness